=== PATIENT | female | born 1995 | race African-American/Black ===

== ENCOUNTER 2018-01-05 22:24 | Emergency (ER) | payer OTHER, MEDICAID ==
[~2018-01-05] VITALS: Ht 165.1 cm; Wt 54.4 kg
[2018-01-05 22:45] LABS: URINE BILIRUBIN NEGATIVE (Negative); URINE BLOOD NEGATIVE (Negative); URINE CLARITY CLEAR; URINE COLOR YELLOW; URINE GLUCOSE-RANDOM NEGATIVE (Negative); URINE KETONES 2+ (Negative); URINE LEUKOCYTES-REFLEX NEGATIVE (Negative); URINE NITRITE-REFLEX NEGATIVE (Negative); URINE PROTEIN TRACE (Negative); URINE SPECIFIC GRAVITY >= 1.030 (1.005-1.030)
[2018-01-05 22:50] LABS: ABSOLUTE EOSINOPHILS 0.1 thou/uL (0.0-0.7); ABSOLUTE LYMPHOCYTES 1.8 thou/uL (0.8-5.3); ABSOLUTE MONOCYTES 0.3 thou/uL (0.0-1.2); ABSOLUTE NEUTROPHILS 3.6 thou/uL (1.6-8.1); BASOPHILS 0.7 %; EOSINOPHILS 1.5 %; HEMATOCRIT 36.7 % (37.0-47.0); HEMOGLOBIN 11.6 gm/dL (12.0-15.0); LYMPHOCYTES 31.7 %; MCH 22.1 pg (26.0-34.0); MCHC 31.8 g/dL (28.0-37.0); MCV 69.5 fL (80.0-100.0); MONOCYTES 4.5 %; MPV 9.6 fl. (7.2-11.1); NUCLEATED RBCS 0 /100WBC; PLATELET COUNT* 238 thou/uL (150-400); POLYS 61.6 %; RBC 5.27 mil/uL (4.20-5.00); RDW-CV 18.2 % (10.5-14.5); WBC 5.8 thou/uL (4.0-11.0)
[2018-01-05 22:58] LABS: CALCIUM 9.7 mg/dL (8.5-10.1); CREATININE 0.9 mg/dL (0.6-1.3); POTASSIUM 3.5 mmol/L (3.5-5.1)
[2018-01-05 23:02] LABS: ALBUMIN 4.3 g/dL (3.4-5.0); TOTAL BILIRUBIN 2.5 mg/dL (<0.1-1.0); TOTAL PROTEIN 8.1 g/dL (6.4-8.2)
[2018-01-05] MEDS ORDERED: ZOFRAN4 MG PO (23:52)
[2018-01-06 00:05] VITALS: BP 100/68
[2018-01-06 02:35] LABS: ANISOCYTOSIS 1+; HYPOCHROMASIA 2+; MICROCYTES 1+
== END 2018-01-06 00:08 | disposition home or self-care (01) ==
LOC: M.ERS 22:24 → EDBD 22:24 → M.ERS 01-06 00:08
PROVIDERS: Nurse Practitioner
DX: R11.0 Nausea (principal); Z33.1 Pregnant state, incidental

== ENCOUNTER 2018-01-09 20:35 | Emergency (ER) | payer OTHER, MEDICAID ==
[~2018-01-09] VITALS: Ht 165.1 cm; Wt 54.4 kg
[~2018-01-09 20:35] MED LIST: ZOFRAN4 MG PO
[2018-01-09 21:19] LABS: ABSOLUTE BASOPHILS 0.1 thou/uL (0.0-0.2); ABSOLUTE EOSINOPHILS 0.1 thou/uL (0.0-0.7); ABSOLUTE LYMPHOCYTES 1.9 thou/uL (0.8-5.3); ABSOLUTE MONOCYTES 0.3 thou/uL (0.0-1.2); BASOPHILS 1.3 %; HEMATOCRIT 36.5 % (37.0-47.0); HEMOGLOBIN 11.5 gm/dL (12.0-15.0); LYMPHOCYTES 30.1 %; MCH 22.2 pg (26.0-34.0); MCHC 31.5 g/dL (28.0-37.0); MCV 70.3 fL (80.0-100.0); MONOCYTES 4.7 %; MPV 10.2 fl. (7.2-11.1); NUCLEATED RBCS 0 /100WBC; PLATELET COUNT* 266 thou/uL (150-400); POLYS 62.9 %; RBC 5.19 mil/uL (4.20-5.00); RDW-CV 17.5 % (10.5-14.5); WBC 6.4 thou/uL (4.0-11.0)
[2018-01-09 21:23] LABS: URINE BLOOD NEGATIVE (Negative); URINE CLARITY CLEAR; URINE COLOR YELLOW; URINE GLUCOSE-RANDOM NEGATIVE (Negative); URINE LEUKOCYTES-REFLEX NEGATIVE (Negative); URINE NITRITE-REFLEX NEGATIVE (Negative); URINE PROTEIN TRACE (Negative); URINE SPECIFIC GRAVITY >= 1.030 (1.005-1.030)
[2018-01-09 21:26] LABS: CALCIUM 8.8 mg/dL (8.5-10.1); CREATININE 0.9 mg/dL (0.6-1.3); POTASSIUM 3.2 mmol/L (3.5-5.1)
[2018-01-09 21:36] LABS: ICTOTEST (BILI CONFIRMATORY) Negative (Negative); URINE BILIRUBIN 2+ (Negative); URINE KETONES 3+ (Negative)
[2018-01-09 21:37] LABS: ACETEST (KETONE CONFIRMATORY) Moderate (Negative)
[2018-01-09 22:21] LABS: MICROCYTES 2+; PLATELET ESTIMATE ADEQUATE; POIKILOCYTOSIS Occasional
[2018-01-09 22:22] LABS: ANISOCYTOSIS 1+
[2018-01-09] MEDS ORDERED: DICLEGIS DR 101 EACH PO (23:12)
[2018-01-09 23:45] VITALS: BP 105/59
== END 2018-01-09 23:45 | disposition home or self-care (01) ==
LOC: M.ERS 20:35 → EDBD 20:35 → M.ERS 23:45
PROVIDERS: Nurse Practitioner Family
DX: O26.891 Other specified pregnancy related conditions, first trimester (principal); Z3A.01 Less than 8 weeks gestation of pregnancy; R10.9 Unspecified abdominal pain

== ENCOUNTER 2018-01-20 19:37 | Emergency (ER) | payer OTHER, MEDICAID ==
[~2018-01-20] VITALS: Ht 165.1 cm; Wt 54.4 kg
[~2018-01-20 19:37] MED LIST changes: +DICLEGIS DR 101 EACH PO
[2018-01-20 21:34] LABS: URINE BLOOD TRACE (Negative); URINE CLARITY CLEAR; URINE COLOR YELLOW; URINE GLUCOSE-RANDOM NEGATIVE (Negative); URINE LEUKOCYTES-REFLEX 1+ (Negative); URINE NITRITE-REFLEX NEGATIVE (Negative); URINE PROTEIN 1+ (Negative); URINE SPECIFIC GRAVITY 1.015 (1.005-1.030)
[2018-01-20 21:35] LABS: ABSOLUTE LYMPHOCYTES 1.1 thou/uL (0.8-5.3); ABSOLUTE MONOCYTES 0.4 thou/uL (0.0-1.2); ABSOLUTE NEUTROPHILS 4.8 thou/uL (1.6-8.1); BASOPHILS 0.7 %; EOSINOPHILS 0.5 %; HEMATOCRIT 39.4 % (37.0-47.0); HEMOGLOBIN 12.5 gm/dL (12.0-15.0); LYMPHOCYTES 17.2 %; MCH 22.4 pg (26.0-34.0); MCHC 31.7 g/dL (28.0-37.0); MCV 70.8 fL (80.0-100.0); MONOCYTES 6.1 %; MPV 11.2 fl. (7.2-11.1); NUCLEATED RBCS 0 /100WBC; PLATELET COUNT* 270 thou/uL (150-400); POLYS 75.5 %; RBC 5.56 mil/uL (4.20-5.00); RDW-CV 17.5 % (10.5-14.5); URINE BILIRUBIN 2+ (Negative); URINE KETONES 3+ (Negative); WBC 6.4 thou/uL (4.0-11.0)
[2018-01-20] MEDS ORDERED: ZOFRAN ODT4 MG DISSOLVE (21:36)
[2018-01-20 21:43] LABS: CALCIUM 10.1 mg/dL (8.5-10.1); CREATININE 0.7 mg/dL (0.6-1.3); POTASSIUM 3.7 mmol/L (3.5-5.1)
[2018-01-20 21:44] LABS: BACTERIA-REFLEX >30 Many /HPF (None Seen); CASTS None Seen /LPF (None Seen); CRYSTALS None Seen /LPF (None Seen); MUCUS 4-6 Moderate strn/LPF (None Seen); SQUAMOUS 4-10 Moderate /LPF (0-3); TRANSITIONAL EPITHEL CELL 0-3 Few /LPF (None Seen); URINE WBC-REFLEX 0-5 Rare /HPF (0-5)
[2018-01-20 21:48] LABS: ALBUMIN 4.4 g/dL (3.4-5.0); TOTAL BILIRUBIN 1.5 mg/dL (<0.1-1.0); TOTAL PROTEIN 8.3 g/dL (6.4-8.2)
[2018-01-20] MEDS ORDERED: FLAGYL500 MG PO (21:55)
[2018-01-20 22:26] LABS: ANISOCYTOSIS 1+; HYPOCHROMASIA 2+; MICROCYTES 1+; OVALOCYTES Occasional
[2018-01-20 22:27] LABS: SCHISTOCYTES Occasional
[2018-01-20 22:47] VITALS: BP 110/73
== END 2018-01-20 22:55 | disposition home or self-care (01) ==
LOC: M.ERS 19:37
PROVIDERS: Nurse Practitioner Family
DX: O23.591 Infection of other part of genital tract in pregnancy, first trimester (principal); B96.89 Other specified bacterial agents as the cause of diseases classified elsewhere; Z3A.01 Less than 8 weeks gestation of pregnancy

== ENCOUNTER 2018-07-05 21:08 | Emergency (ER) | payer OTHER ==
[~2018-07-05] VITALS: Ht 165.1 cm; Wt 54.4 kg
[~2018-07-05 21:08] MED LIST changes: +FLAGYL500 MG PO; +ZOFRAN ODT4 MG DISSOLVE
[2018-07-05 21:42] LABS: INFLUENZA A ANTIGEN None Detected (None Detect); INFLUENZA B ANTIGEN None Detected (None Detect)
[2018-07-05] MEDS ORDERED: ZOFRAN ODT4 MG PO (21:54)
[2018-07-05 22:06] VITALS: BP 96/56
== END 2018-07-05 22:06 | disposition home or self-care (01) ==
LOC: M.ERS 21:08
PROVIDERS: Nurse Practitioner Family
DX: B34.9 Viral infection, unspecified (principal); Z87.891 Personal history of nicotine dependence

== ENCOUNTER 2018-11-03 08:33 | Emergency (ER) | payer OTHER ==
[~2018-11-03] VITALS: Ht 165.1 cm; Wt 54.4 kg
[~2018-11-03 08:33] MED LIST changes: +ZOFRAN ODT4 MG PO
[2018-11-03 08:43] VITALS: BP 109/38
[2018-11-03 08:50] LABS: URINE BILIRUBIN NEGATIVE (Negative); URINE BLOOD 1+ (Negative); URINE CLARITY CLEAR; URINE COLOR YELLOW; URINE GLUCOSE-RANDOM NEGATIVE (Negative); URINE KETONES NEGATIVE (Negative); URINE LEUKOCYTES-REFLEX 1+ (Negative); URINE NITRITE-REFLEX NEGATIVE (Negative); URINE PROTEIN 1+ (Negative); URINE SPECIFIC GRAVITY 1.025 (1.005-1.030); URINE UROBILINOGEN 0.2 E.U./dl (0.2-1.0)
[2018-11-03 09:01] LABS: SQUAMOUS 4-10 Moderate /LPF (0-3); URINE WBC-REFLEX >25 Many /HPF (0-5)
[2018-11-03 09:02] LABS: BACTERIA-REFLEX 1-9 Few /HPF (None Seen); CASTS None Seen /LPF (None Seen); CRYSTALS None Seen /LPF (None Seen); MUCUS None Seen strn/LPF (None Seen); URINE RBC 3-10 Few /HPF (0-2)
[2018-11-03] MEDS ORDERED: KEFLEX500 M1 PO (09:05)
== END 2018-11-03 09:08 | disposition home or self-care (01) ==
LOC: M.ERS 08:33
PROVIDERS: Personal Emergency Response Attendant
DX: N39.0 Urinary tract infection, site not specified (principal); Z98.890 Other specified postprocedural states

== ENCOUNTER 2020-09-07 19:19 | Emergency (ER) | payer OTHER, MEDICAID ==
[~2020-09-07] VITALS: Ht 165.1 cm; Wt 49.9 kg
[~2020-09-07 19:19] MED LIST changes: +KEFLEX500 M1 PO
[2020-09-07] MEDS ORDERED: ZOFRAN ODT4 MG PO (19:35)
[2020-09-07 19:43] LABS: ABSOLUTE EOSINOPHILS 0.1 thou/uL (0.0-0.7); ABSOLUTE LYMPHOCYTES 1.3 thou/uL (0.8-5.3); ABSOLUTE MONOCYTES 0.3 thou/uL (0.0-1.2); ABSOLUTE NEUTROPHILS 4.6 thou/uL (1.6-8.1); BASOPHILS 0.7 %; HEMATOCRIT 31.2 % (37.0-47.0); HEMOGLOBIN 9.9 gm/dL (12.0-15.0); LYMPHOCYTES 20.8 %; MCH 23.7 pg (26.0-34.0); MCHC 31.6 g/dL (28.0-37.0); MCV 74.8 fL (80.0-100.0); MONOCYTES 4.3 %; MPV 8.9 fl. (7.2-11.1); NUCLEATED RBCS 0 /100WBC; PLATELET COUNT* 225 thou/uL (150-400); POLYS 73.2 %; RBC 4.17 mil/uL (4.20-5.00); RDW-CV 16.2 % (10.5-14.5); WBC 6.3 thou/uL (4.0-11.0)
[2020-09-07 19:44] LABS: URINE BILIRUBIN NEGATIVE (Negative); URINE BLOOD NEGATIVE (Negative); URINE CLARITY CLEAR; URINE COLOR YELLOW; URINE GLUCOSE-RANDOM NEGATIVE (Negative); URINE KETONES TRACE (Negative); URINE LEUKOCYTES-REFLEX NEGATIVE (Negative); URINE NITRITE-REFLEX NEGATIVE (Negative); URINE PROTEIN NEGATIVE (Negative); URINE SPECIFIC GRAVITY >= 1.030 (1.005-1.030)
[2020-09-07 19:55] LABS: CALCIUM 8.6 mg/dL (8.5-10.1); CREATININE 0.9 mg/dL (0.6-1.3); POTASSIUM 3.6 mmol/L (3.5-5.1)
[2020-09-07 20:03] LABS: TOTAL BILIRUBIN 0.5 mg/dL (<0.1-1.0); TOTAL PROTEIN 6.6 g/dL (6.4-8.2)
[2020-09-07 21:10] VITALS: BP 102/63
== END 2020-09-07 21:11 | disposition home or self-care (01) ==
LOC: M.ERS 19:19
PROVIDERS: Nurse Practitioner Family
DX: O26.891 Other specified pregnancy related conditions, first trimester (principal); R10.9 Unspecified abdominal pain; O99.011 Anemia complicating pregnancy, first trimester; D50.9 Iron deficiency anemia, unspecified; Z3A.13 13 weeks gestation of pregnancy; Z98.890 Other specified postprocedural states; Z79.899 Other long term (current) drug therapy